=== PATIENT | male | born 1995 | race Caucasian/White ===

== ENCOUNTER 2016-04-23 20:09 | Emergency (ER) | payer BC ==
[2016-04-23 21:00] VITALS: BP 143/77
[2016-04-23] MEDS ORDERED: Ondansetron ODT TAB* 4 MG PO ONE (21:57)
[2016-04-23] MEDS: Ondansetron ODT TAB* 4 MG PO ONE ×2 (22:11→22:12)
[2016-04-23] MEDS ORDERED: Acetaminophen TAB* 325 MG PO ONE (22:53)
--- NOTE | 2016-04-27 08:26 | UC ---
Bina, DoctorHermelinda, scribed for Racheal Hooker MD on 04/23/16 at 2150 . General HPI - HPI Summary HPI Summary: 20 year old male arrived to [facility] [place]/o fever and vomiting beginning this morning. He additionally reports general malaise, sweating, chills, subjective fever, PAULSON, body aches, nausea, and feeling like the "room was spinning." He reports that his symptoms are the worst when waking up in the morning and currently rates his pain as 8/10; last vomited at 18:00 today. He denies any painful urination, abdominal pain, diarrhea, cough, sore throat. He took Advil for his pain [employer]. He indicated that he has "been feeling generally off" and " not 100%" with intermittent "stomach-bug" like symptoms beginning one month ago , including regular nausea and diarrhea; however, his current symptoms "feel like something new and unrelated" to his past GI symptoms. He has not traveled in the past month but does report a recent change to his medication one month ago (75 to 150 mg Effexor, recommended by his PCP). He is a current student at [employer] from [place], and does not have a PCP in the area. - History of Current Complaint Chief Complaint: UC Stated Complaint: FEVER,VOMITING Hx Obtained From: Patient Onset/Duration: Gradual Onset - gradual onset, worst when waking up, Lasting Hours - onset this morning, Still Present Timing: Constant Onset Severity: Moderate Current Severity: Moderate Pain Intensity: 8 - 0-10 Scale Pain Location at: muscles Pain Radiates to: no Character: dull Aggravating: nothing Alleviating: nothing Associated Signs & Symptoms: Positive: Dizziness - feeling like "the room was spinning", Diaphoresis, Fever, Headache, Nausea, Recent Medication Changes - 75 to 150 mg Effexor 1 month ago, Vomiting, Weakness - general weakness and body aches. Negative: Abdominal Pain, Cough, Diarrhea, Dysuria - Allergy/Home Medications Allergies/Adverse Reactions: Allergies Allergy/AdvReac Type Severity Reaction Status Date / Time Azithromycin [From Zithromax] Allergy Severe "DOESN'T Verified 04/23/16 21:00 WORK ON ME" Home Medications: Home Medications Ibuprofen [Advil] 2 04/23/16 [History] Venlafaxine EXT RELEASE CAP* [Effexor Xr CAP*] 04/23/16 [History] PMH/Surg Hx/FS Hx/Imm Hx Previously Healthy: Yes Endocrine History Of: Denies: Diabetes, Thyroid Disease Cardiovascular History Of: Denies: Cardiac Disorders, Hypertension Respiratory History Of: Denies: COPD, Asthma GI/ History Of: Denies: Ulcer - Surgical History Surgical History: None - Family History Known Family History: Positive: Other - both parents and grandparents alive and in good health. Negative: Cardiac Disease, Hypertension, Diabetes - Social History Occupation: Student Alcohol Use: Weekly Substance Use Type: None, Prescribed Smoking Status (MU): Never Smoked Tobacco Review of Systems Constitutional: Fever - subjective, assessed earlier today., Chills, Fatigue Gastrointestinal: Vomiting, Other - Nausea Musculoskeletal: Myalgia Neurological: Other - "general malaise" All Other Systems Reviewed And Are Negative: Yes Physical Exam Triage Information Reviewed: Yes Appearance: No Pain Distress, Well-Nourished, Ill-Appearing Vital Signs: Initial Vital Signs Temp 99 F 04/23/16 20:54 Resp 101 04/23/16 20:54 BP 143/77 04/23/16 20:54 Pulse Ox 96 04/23/16 20:54 Vital Signs Reviewed: Yes Eyes: Positive: Conjunctiva Clear ENT: Positive: Normal ENT inspection, Muffled/hoarse voice - voice slightly hoarse Neck: Positive: Supple Respiratory: Positive: Lungs clear, Normal breath sounds, No respiratory distress Cardiovascular: Positive: RRR, No Murmur, Pulses Normal, Brisk Capillary Refill Abdomen Description: Positive: Nontender, No Organomegaly, Soft. Negative: CVA Tenderness (R), CVA Tenderness (L), Distended, Guarding, Hernia @, McBurney's Point Tenderness, Peritoneal Signs, Pulsatile Mass, Splenomegaly Bowel Sounds: Positive: Present Musculoskeletal: Positive: Strength Intact, ROM Intact Neurological: Positive: Alert, Muscle Tone Normal Psychological Exam: Normal Skin Exam: Normal Re-Evaluation - Re-Evaluation First Eval Re-Evaluation Time: 22:40 Change: Unchanged - 22:40 - Discussed test results, reassessed pt's disposition. Pt given zofran with some relief. Advised patient to continue monitoring his symptoms, and regularly check his temperature for potential exacerbation. Pt was agreeable with current treatment course. Course/Dx - Differential Dx - Multi-Symptom Provider Diagnoses: gastroenteritis. viral syndrome Discharge - Discharge Plan Condition: Stable Disposition: HOME Prescriptions: Ondansetron ODT TAB* [Zofran Odt TAB*] 4 mg PO Q8H PRN #12 tab.odt PRN Reason: Nausea Patient Education Materials: Gastroenteritis (ED), Viral Syndrome (ED) Forms: *School Release Referrals: [facility] [Outside] - 2 Days (CALL THIS NUMBER TO REACH GENE LAGUNASRN WHO WILL ASSIST WITH GETTING YOU A PRIMARY CARE PROVIDER IN THIS AREA. ) [facility] - Additional Instructions: Dr. Hooker recommends that you buy a thermometer and monitor your temperature. She gave a dose of zofran (ondansetron) 4mg ODT at 10pm. Your next dose may be at 0400am for nausea and vomiting. She gave a dose of Tylenol (acetaminophen) at 10:50pm. Your next dose of that is at 0300am. You may use benadryl for sleep. Talk with your provider about whether effexor XR is contributing to your nausea and vomiting, but Dr. Hooker agrees that it would not give a fever to explain this acute illness. Return to urgent care, see a primary care provider or go to the emergency room if you have new or worsening symptoms. Your influenza swab and your strep swab were both negative tonight. The documentation as recorded by the Doctor baeza Tahera accurately reflects the service I personally performed and the decisions made by , Racheal Hooker MD.
== END 2016-04-23 23:01 | disposition home or self-care (01) ==
LOC: UCEAST 20:09
DX: K52.9 Noninfective gastroenteritis and colitis, unspecified (principal); B34.9 Viral infection, unspecified; Z88.1 Allergy status to other antibiotic agents
CPT/HCPCS: 87502; 87651; 99212; A9270-GY; G0463